=== PATIENT | male | born 1935 | race Caucasian/White ===

== ENCOUNTER 2016-12-23 09:31 | Inpatient (IN) | payer OTHER, MEDICARE ==
[~2016-12-23] VITALS: Ht 177.8 cm; Wt 81.3 kg
[~2016-12-23 09:31] MED LIST: ALDACTONE50 MG PO; ASPIRIN E.C.81 M1 PO; ATENOLOL100 M1 PO; ATENOLOL100 MG PO; FEROSUL325 MG PO; FLEXERIL10 MG PO; FUROSEMIDE40 MG PO; Feosol PO; HYDROCODON-ACE1 EAC7 PO; IMDUR60 MG PO; LASIX10 MG PO; LASIX20 MG PO; LASIX40 MG PO; LIPITOR20 MG PO; LISINOPRIL20 MG PO; LO-DOSE ASPIRIN81 M2 PO; Lasix PO; MIRALAX17 GM PO; NEXIUM40 MG PO; NITROSTAT,NITR0.4 M1 SL; NITROSTAT0.4 MG SL; PANTOPRAZOLE SO40 MG PO; PROCRIT40000 UNI1 SC; PROMETHAZINE HC25 M1 PO; PROTONIX40 MG PO; SPIRIVA1 INHALATI IH; TYLENOL REGULA325 MG PO; Tenormin PO; Tylenol Regular Stre PO; VENTOLIN HFA18 GM IH; ZESTRIL,PRINIVI20 MG PO; ZOFRAN4 MG PO; Zestril,Prinivil PO
[2016-12-23 10:04] LABS: HEMATOCRIT 26.8 % (38.0-50.0); MCH 28.1 PG (29.0-34.0); MCHC 29.9 G/DL (30.0-36.0); MEAN PLAT.VOLUME 11.5 uM^3 (9.0-12.4); PLATELET COUNT 133 K/uL (156-360); RBC DIS.WIDTH-CV 20.6 % (11.8-14.6); RED BLOOD COUNT 2.85 M/uL (4.00-5.50); WHITE BLOOD COUNT 4.5 K/uL (4.1-10.2)
[2016-12-23 10:13] LABS: CHLORIDE 113 mEq/L (99-109); SODIUM 143 mEq/L (136-147)
[2016-12-23 10:15] LABS: GLUCOSE 101 mg/dL (70-99)
[2016-12-23 10:16] LABS: ANION GAP 6 MEQ/L (2-14)
[2016-12-23 10:18] LABS: GFR ESTIMATE (CALCULATED) 41 mL/min/
[2016-12-23 10:19] LABS: UREA NITROGEN (BUN) 65 mg/dL (9-23)
[2016-12-23 10:33] LABS: POTASSIUM 6.3 mEq/L (3.7-5.4)
[2016-12-23 11:55] LABS: TOTAL BILIRUBIN 0.7 mg/dL (0.0-1.0)
[2016-12-23 11:56] LABS: ALKALINE PHOSPHATASE 76 IU/L (3-129)
[2016-12-23 11:59] LABS: DIRECT BILIRUBIN 0.4 mg/dL (0.0-0.3)
[2016-12-23] MEDS ORDERED: PROTONIX40 MG PO (13:04)
[2016-12-23 17:50] VITALS: BP 118/54
[2016-12-23 19:12] LABS: ANION GAP 7 MEQ/L (2-14); CHLORIDE 112 MEQ/L (99-109); POTASSIUM 5.7 MEQ/L (3.7-5.4); SAMPLE HEMOLYSIS CHECK 0; SAMPLE ICTERIC CHECK 0; SAMPLE LIPEMIA CHECK 0; SODIUM 143 MEQ/L (136-147)
[2016-12-23 19:18] LABS: GFR ESTIMATE (CALCULATED) 48 mL/min/; UREA NITROGEN (BUN) 61 mg/dL (9-23)
[2016-12-23 19:19] LABS: GLUCOSE 155 mg/dL (70-99)
[2016-12-23 19:30] VITALS: BP 106/54
[2016-12-23 21:00] VITALS: BP 160/85
[2016-12-23 23:50] VITALS: BP 123/58
[2016-12-24] VITALS (14 sets, daily range): BP systolic 85–112; BP diastolic 44–64
[2016-12-24 06:25] LABS: ANION GAP 5 MEQ/L (2-14); CHLORIDE 113 MEQ/L (99-109); GFR ESTIMATE (CALCULATED) 48 mL/min/; POTASSIUM 5.5 MEQ/L (3.7-5.4); SAMPLE HEMOLYSIS CHECK 0; SAMPLE ICTERIC CHECK 0; SAMPLE LIPEMIA CHECK 0; SODIUM 143 MEQ/L (136-147); UREA NITROGEN (BUN) 59 mg/dL (9-23)
[2016-12-24 06:27] LABS: HEMATOCRIT 23.3 % (38.0-50.0); MCH 28.2 PG (29.0-34.0); MCHC 29.6 G/DL (30.0-36.0); MCV 95.1 FL (86-99); MEAN PLAT.VOLUME 12.5 uM^3 (9.0-12.4); PLATELET COUNT 125 K/uL (156-360); RBC DIS.WIDTH-CV 20.9 % (11.8-14.6); RBC DIS.WIDTH-SD 72.3 % (39-53); RED BLOOD COUNT 2.45 M/uL (4.00-5.50); WHITE BLOOD COUNT 3.8 K/uL (4.1-10.2)
[2016-12-24 06:27] LABS: GLUCOSE 90 mg/dL (70-99)
[2016-12-25 02:02] VITALS: BP 88/58
[2016-12-25 06:56] LABS: HEMATOCRIT 25.2 % (38.0-50.0); MCH 27.8 PG (29.0-34.0); MCHC 30.2 G/DL (30.0-36.0); MCV 92.3 FL (86-99); MEAN PLAT.VOLUME 12.3 uM^3 (9.0-12.4); PLATELET COUNT 120 K/uL (156-360); RBC DIS.WIDTH-CV 20.5 % (11.8-14.6); RBC DIS.WIDTH-SD 67.9 % (39-53); RED BLOOD COUNT 2.73 M/uL (4.00-5.50)
[2016-12-25 07:20] LABS: ANION GAP 6 MEQ/L (2-14); CHLORIDE 114 MEQ/L (99-109); GFR ESTIMATE (CALCULATED) 48 mL/min/; GLUCOSE 79 mg/dL (70-99); POTASSIUM 4.5 MEQ/L (3.7-5.4); SAMPLE HEMOLYSIS CHECK 0; SAMPLE ICTERIC CHECK 0; SAMPLE LIPEMIA CHECK 0; SODIUM 145 MEQ/L (136-147); UREA NITROGEN (BUN) 51 mg/dL (9-23)
[2016-12-25 07:26] LABS: EOSINOPHIL (%) 3.8 % (0-5); EOSINOPHIL COUNT 0.2 K/uL (0-0.3); IMMATURE GRANULOCYTE (%) 0.5 % (0.0-0.7); INSTRUMENT ABS NEUTROPHIL CT 2.6 K/uL; LYMPHOCYTE COUNT 0.7 K/uL (1.0-2.8); MONOCYTE (%) 11.1 % (3-12); MONOCYTE COUNT 0.4 K/uL (0-0.8); NEUTROPHIL (%) 65.6 % (45-76); NEUTROPHIL COUNT 2.6 K/uL (1.8-6.4)
[2016-12-25 10:10] VITALS: BP 100/47
== END 2016-12-25 13:05 | disposition home or self-care (01) | DRG 683 ==
LOC: EME 09:31 → EDOF 12:42 → 5EAST 16:49
PROVIDERS: Family Medicine
PROC: 30233P1 Transfusion of Nonautologous Frozen Red Cells into Peripheral Vein, Percutaneous Approach (ICD-10-PCS; principal; 2016-12-24)
DX: N17.9 Acute kidney failure, unspecified (principal); I13.0 Hypertensive heart and chronic kidney disease with heart failure and stage 1 through stage 4 chronic kidney disease, or unspecified chronic kidney disease; E87.5 Hyperkalemia; D64.9 Anemia, unspecified; I50.9 Heart failure, unspecified; I25.10 Atherosclerotic heart disease of native coronary artery without angina pectoris; N18.9 Chronic kidney disease, unspecified; Z95.0 Presence of cardiac pacemaker; Z87.891 Personal history of nicotine dependence; D46.9 Myelodysplastic syndrome, unspecified; I95.9 Hypotension, unspecified; I48.91 Unspecified atrial fibrillation
CPT/HCPCS: 71020; 80048; 80048 91; 80076; 83880; 85025; 85027; 86850; 86900; 86901; 86920; 93005; 94640; 94640 76; 99202; 99281; 99285; J0610; J0780; J1644; J1940; J7030; J7040; J7050; P9016; S0028

== ENCOUNTER → 2017-03-03 | Outpatient (CLI) | payer OTHER, MEDICARE ==
[~2017-03-03] MED LIST changes: +LASIX80 MG PO; +METOLAZONE2.5 MG PO
[2017-03-03 09:17] LABS: TYPE OF FLUID PARACENTESIS
[2017-03-03 09:59] LABS: BODY FLUID LDH 102 IU/L; BODY FLUID PROTEIN 3.6 G/DL
[2017-03-03 10:34] LABS: BODY FLUID RBC'S 234000 /MM^3 (0-100); BODY FLUID WBC'S 300 /MM^3 (0-500)
[2017-03-03 10:43] LABS: BODY FLUID EOSINOPHILS 2 % (0-25); MONO RAW COUNT 20; MONONUCLEAR WBC'S 20 %; POLY RAW COUNT 78; POLYNUCLEAR WBC'S 78 % (0-25)
[2017-03-06 23:26] LABS: BODY FLUID PH 7.7 (())
== END | disposition home or self-care (01) ==
LOC: RAD 08:08
PROVIDERS: Radiology Diagnostic Radiology
PROC: 0W9G3ZZ Drainage of Peritoneal Cavity, Percutaneous Approach (ICD-10-PCS; principal; 2017-03-03)
DX: R18.8 Other ascites (principal); I50.9 Heart failure, unspecified
CPT/HCPCS: 82945; 83615 91; 83986 90; 84157; 87070; 87075; 87205; 88108; 89051

== ENCOUNTER 2017-03-23 16:43 | Inpatient (IN) | payer OTHER, MEDICARE ==
[~2017-03-23] VITALS: Ht 175.3 cm; Wt 85.0 kg
[2017-03-23 17:59] LABS: MCH 26.5 PG (29.0-34.0); MCV 88.2 FL (86-99); MEAN PLAT.VOLUME 11.5 uM^3 (9.0-12.4); PLATELET COUNT 166 K/uL (156-360); RBC DIS.WIDTH-CV 19.6 % (11.8-14.6); RBC DIS.WIDTH-SD 62.9 % (39-53); RED BLOOD COUNT 2.38 M/uL (4.00-5.50); WHITE BLOOD COUNT 4.7 K/uL (4.1-10.2)
[2017-03-23 18:15] LABS: CHLORIDE 100 mEq/L (99-109); POTASSIUM 3.9 mEq/L (3.7-5.4); SODIUM 141 mEq/L (136-147)
[2017-03-23 18:16] LABS: GLUCOSE 113 mg/dL (70-99)
[2017-03-23 18:18] LABS: ANION GAP 9 MEQ/L (2-14)
[2017-03-23 18:20] LABS: GFR ESTIMATE (CALCULATED) 32 mL/min/
[2017-03-23 18:25] LABS: TROP-I INTERPRETATION NEGATIVE; TROPONIN-I < 0.01 ng/mL (0.0-0.30)
[2017-03-23 18:44] LABS: UREA NITROGEN (BUN) 101 mg/dL (9-23)
[2017-03-23 18:46] LABS: ADD MIUA? YES; BILIRUBIN NEGATIVE; BLOOD SMALL; COLOR STRAW ((YELLOW)); GLUCOSE (STRIP) NEGATIVE; KETONES NEGATIVE; LEUKOCYTES TRACE; NITRITE NEGATIVE; PROTEIN (STRIP) NEGATIVE; SPECIFIC GRAVITY 1.008 (1.000-1.030); UROBILINOGEN 0.2 MG/DL (0.2-1.0)
[2017-03-23 18:52] LABS: BACTERIA NONE SEEN /HPF; EPITHELIAL CELLS RARE /HPF; HYALINE CASTS 0-5 /LPF; MUCUS TRACE /LPF; UCUL ADDED? NO
[2017-03-23 18:52] LABS: ALKALINE PHOSPHATASE 78 IU/L (3-129)
[2017-03-23 18:54] LABS: DIRECT BILIRUBIN 0.4 mg/dL (0.0-0.3)
[2017-03-23] MEDS ORDERED: PROCRIT2000 UNIT1 SC (20:26)
[2017-03-23] MEDS ORDERED: LISINOPRIL20 MG PO (20:27)
[2017-03-23] MEDS ORDERED: LORAZEPAM0.5 MG PO (20:27)
[2017-03-23 23:44] VITALS: BP 106/56
[2017-03-24] VITALS (14 sets, daily range): BP systolic 90–112; BP diastolic 46–56
[2017-03-24 17:31] LABS: ADD MIUA? YES; BILIRUBIN NEGATIVE; BLOOD SMALL; COLOR YELLOW ((YELLOW)); GLUCOSE (STRIP) NEGATIVE; KETONES NEGATIVE; LEUKOCYTES SMALL; NITRITE NEGATIVE; PROTEIN (STRIP) NEGATIVE; SPECIFIC GRAVITY 1.012 (1.000-1.030); UROBILINOGEN 0.2 MG/DL (0.2-1.0)
[2017-03-24 17:49] LABS: BACTERIA RARE /HPF; EPITHELIAL CELLS RARE /HPF; MUCUS TRACE /LPF
[2017-03-24 21:50] LABS: MCH 27.4 PG (29.0-34.0); MCV 88.6 FL (86-99); MEAN PLAT.VOLUME 11.2 uM^3 (9.0-12.4); PLATELET COUNT 119 K/uL (156-360); RBC DIS.WIDTH-SD 56.8 % (39-53); RED BLOOD COUNT 2.37 M/uL (4.00-5.50); WHITE BLOOD COUNT 4.9 K/uL (4.1-10.2)
[2017-03-24 22:08] LABS: ANION GAP 11 MEQ/L (2-14); CHLORIDE 100 MEQ/L (99-109); GFR ESTIMATE (CALCULATED) 38 mL/min/; GLUCOSE 114 mg/dL (70-99); POTASSIUM 3.4 MEQ/L (3.7-5.4); SAMPLE HEMOLYSIS CHECK 0; SAMPLE ICTERIC CHECK 0; SAMPLE LIPEMIA CHECK 0; SODIUM 142 MEQ/L (136-147); UREA NITROGEN (BUN) 94 mg/dL (9-23)
[2017-03-25] VITALS (12 sets, daily range): BP systolic 89–121; BP diastolic 48–73
[2017-03-25 12:36] LABS: EOSINOPHIL (%) 0.4 % (0-5); HEMATOCRIT 26.1 % (38.0-50.0); IMMATURE GRANULOCYTE (%) 0.4 % (0.0-0.7); INSTRUMENT ABS NEUTROPHIL CT 5.6 K/uL; LYMPHOCYTE COUNT 0.5 K/uL (1.0-2.8); MCH 27.4 PG (29.0-34.0); MCV 88.2 FL (86-99); MEAN PLAT.VOLUME 10.6 uM^3 (9.0-12.4); MONOCYTE (%) 14.5 % (3-12); MONOCYTE COUNT 1.1 K/uL (0-0.8); NEUTROPHIL (%) 76.9 % (45-76); NEUTROPHIL COUNT 5.6 K/uL (1.8-6.4); PLATELET COUNT 123 K/uL (156-360); RBC DIS.WIDTH-CV 17.2 % (11.8-14.6); RBC DIS.WIDTH-SD 54.9 % (39-53); WHITE BLOOD COUNT 7.3 K/uL (4.1-10.2)
[2017-03-25 12:38] LABS: RED BLOOD COUNT 2.96 M/uL (4.00-5.50)
[2017-03-25 12:55] LABS: ALKALINE PHOSPHATASE 70 IU/L (3-129); ANION GAP 10 MEQ/L (2-14); CHLORIDE 95 MEQ/L (99-109); GFR ESTIMATE (CALCULATED) 38 mL/min/; GLUCOSE 102 mg/dL (70-99); MAGNESIUM 2.3 mg/dl (1.3-2.7); POTASSIUM 3.2 MEQ/L (3.7-5.4); SAMPLE HEMOLYSIS CHECK 0; SAMPLE ICTERIC CHECK 0; SAMPLE LIPEMIA CHECK 0; SODIUM 136 MEQ/L (136-147); TOTAL BILIRUBIN 2.3 MG/DL (0.0-1.0); UREA NITROGEN (BUN) 95 mg/dL (9-23); URIC ACID 11.6 mg/dL (3.1-9.2)
[2017-03-26] VITALS (7 sets, daily range): BP systolic 82–138; BP diastolic 39–66
[2017-03-26 06:54] LABS: EOSINOPHIL (%) 1.3 % (0-5); EOSINOPHIL COUNT 0.1 K/uL (0-0.3); HEMATOCRIT 23.2 % (38.0-50.0); IMMATURE GRANULOCYTE (%) 0.6 % (0.0-0.7); INSTRUMENT ABS NEUTROPHIL CT 3.9 K/uL; LYMPHOCYTE COUNT 0.5 K/uL (1.0-2.8); MCH 27.7 PG (29.0-34.0); MCHC 31.5 G/DL (30.0-36.0); MCV 87.9 FL (86-99); MEAN PLAT.VOLUME 10.4 uM^3 (9.0-12.4); MONOCYTE (%) 14.7 % (3-12); MONOCYTE COUNT 0.8 K/uL (0-0.8); NEUTROPHIL (%) 73.2 % (45-76); NEUTROPHIL COUNT 3.9 K/uL (1.8-6.4); PLATELET COUNT 93 K/uL (156-360); RBC DIS.WIDTH-CV 17.3 % (11.8-14.6); RBC DIS.WIDTH-SD 54.5 % (39-53); RED BLOOD COUNT 2.64 M/uL (4.00-5.50); WHITE BLOOD COUNT 5.3 K/uL (4.1-10.2)
[2017-03-26 07:24] LABS: IRON 80 MCG/DL (35-150)
[2017-03-27] VITALS (9 sets, daily range): BP systolic 47–111; BP diastolic 39–90
[2017-03-27 06:26] LABS: EOSINOPHIL (%) 1.8 % (0-5); EOSINOPHIL COUNT 0.1 K/uL (0-0.3); HEMATOCRIT 23.6 % (38.0-50.0); IMMATURE GRANULOCYTE (%) 0.2 % (0.0-0.7); INSTRUMENT ABS NEUTROPHIL CT 4.6 K/uL; LYMPHOCYTE COUNT 0.6 K/uL (1.0-2.8); MCH 28.6 PG (29.0-34.0); MCHC 31.8 G/DL (30.0-36.0); MCV 90.1 FL (86-99); MEAN PLAT.VOLUME 11.3 uM^3 (9.0-12.4); MONOCYTE (%) 14.5 % (3-12); MONOCYTE COUNT 0.9 K/uL (0-0.8); NEUTROPHIL (%) 73.5 % (45-76); NEUTROPHIL COUNT 4.6 K/uL (1.8-6.4); PLATELET COUNT 106 K/uL (156-360); RBC DIS.WIDTH-CV 17.8 % (11.8-14.6); RBC DIS.WIDTH-SD 57.6 % (39-53); RED BLOOD COUNT 2.62 M/uL (4.00-5.50); WHITE BLOOD COUNT 6.2 K/uL (4.1-10.2)
[2017-03-27 06:52] LABS: ANION GAP 9 MEQ/L (2-14); CHLORIDE 102 MEQ/L (99-109); GFR ESTIMATE (CALCULATED) 38 mL/min/; GLUCOSE 105 mg/dL (70-99); POTASSIUM 3.1 MEQ/L (3.7-5.4); SAMPLE HEMOLYSIS CHECK 0; SAMPLE ICTERIC CHECK 0; SAMPLE LIPEMIA CHECK 0; UREA NITROGEN (BUN) 91 mg/dL (9-23)
[2017-03-27 06:54] LABS: SODIUM 145 MEQ/L (136-147)
[2017-03-28] VITALS (8 sets, daily range): BP systolic 91–125; BP diastolic 41–55
[2017-03-28 06:40] LABS: ANION GAP 9 MEQ/L (2-14); CHLORIDE 101 MEQ/L (99-109); GFR ESTIMATE (CALCULATED) 38 mL/min/; GLUCOSE 102 mg/dL (70-99); MAGNESIUM 2.4 mg/dl (1.3-2.7); POTASSIUM 3.7 MEQ/L (3.7-5.4); SAMPLE HEMOLYSIS CHECK 0; SAMPLE ICTERIC CHECK 0; SAMPLE LIPEMIA CHECK 0; SODIUM 143 MEQ/L (136-147); UREA NITROGEN (BUN) 91 mg/dL (9-23)
[2017-03-28 06:54] LABS: ALKALINE PHOSPHATASE 63 IU/L (3-129); ANION GAP 9 MEQ/L (2-14); CHLORIDE 103 MEQ/L (99-109); GFR ESTIMATE (CALCULATED) 38 mL/min/; GLUCOSE 98 mg/dL (70-99); POTASSIUM 3.8 MEQ/L (3.7-5.4); SAMPLE HEMOLYSIS CHECK 0; SAMPLE ICTERIC CHECK 0; SAMPLE LIPEMIA CHECK 0; SODIUM 145 MEQ/L (136-147); UREA NITROGEN (BUN) 87 mg/dL (9-23)
[2017-03-28 06:55] LABS: TOTAL BILIRUBIN 2.9 MG/DL (0.0-1.0)
[2017-03-28 15:07] LABS: EOSINOPHIL (%) 2.2 % (0-5); EOSINOPHIL COUNT 0.1 K/uL (0-0.3); HEMATOCRIT 28.1 % (38.0-50.0); IMMATURE GRANULOCYTE (%) 0.2 % (0.0-0.7); INSTRUMENT ABS NEUTROPHIL CT 4.3 K/uL; LYMPHOCYTE COUNT 0.5 K/uL (1.0-2.8); MCH 27.7 PG (29.0-34.0); MCHC 30.2 G/DL (30.0-36.0); MCV 91.5 FL (86-99); MONOCYTE (%) 14.5 % (3-12); MONOCYTE COUNT 0.9 K/uL (0-0.8); NEUTROPHIL (%) 73.9 % (45-76); NEUTROPHIL COUNT 4.3 K/uL (1.8-6.4); PLATELET COUNT 100 K/uL (156-360); RBC DIS.WIDTH-SD 57.8 % (39-53); RED BLOOD COUNT 3.07 M/uL (4.00-5.50); WHITE BLOOD COUNT 5.9 K/uL (4.1-10.2)
[2017-03-28 15:08] LABS: HEMATOCRIT 27.4 % (38.0-50.0); MCHC 30.7 G/DL (30.0-36.0); MCV 91.3 FL (86-99); MEAN PLAT.VOLUME 10.8 uM^3 (9.0-12.4); PLATELET COUNT 98 K/uL (156-360); RBC DIS.WIDTH-CV 17.8 % (11.8-14.6); RBC DIS.WIDTH-SD 58.1 % (39-53); WHITE BLOOD COUNT 5.5 K/uL (4.1-10.2)
[2017-03-29] VITALS (8 sets, daily range): BP systolic 97–123; BP diastolic 53–61
[2017-03-29 05:43] LABS: EOSINOPHIL (%) 3.1 % (0-5); EOSINOPHIL COUNT 0.2 K/uL (0-0.3); HEMATOCRIT 26.2 % (38.0-50.0); IMMATURE GRANULOCYTE (%) 0.3 % (0.0-0.7); INSTRUMENT ABS NEUTROPHIL CT 4.5 K/uL; LYMPHOCYTE COUNT 0.4 K/uL (1.0-2.8); MCH 28.4 PG (29.0-34.0); MCHC 31.3 G/DL (30.0-36.0); MCV 90.7 FL (86-99); MEAN PLAT.VOLUME 11.5 uM^3 (9.0-12.4); MONOCYTE (%) 13.4 % (3-12); MONOCYTE COUNT 0.8 K/uL (0-0.8); NEUTROPHIL (%) 75.7 % (45-76); NEUTROPHIL COUNT 4.5 K/uL (1.8-6.4); PLATELET COUNT 94 K/uL (156-360); RBC DIS.WIDTH-CV 17.9 % (11.8-14.6); RBC DIS.WIDTH-SD 57.4 % (39-53); RED BLOOD COUNT 2.89 M/uL (4.00-5.50); WHITE BLOOD COUNT 5.9 K/uL (4.1-10.2)
[2017-03-29 06:32] LABS: ALKALINE PHOSPHATASE 60 IU/L (3-129); ANION GAP 8 MEQ/L (2-14); CHLORIDE 103 MEQ/L (99-109); GFR ESTIMATE (CALCULATED) 38 mL/min/; GLUCOSE 100 mg/dL (70-99); GLUCOSE 99 mg/dL (70-99); POTASSIUM 4.5 MEQ/L (3.7-5.4); SAMPLE HEMOLYSIS CHECK 0; SAMPLE ICTERIC CHECK 0; SAMPLE LIPEMIA CHECK 0; SODIUM 143 MEQ/L (136-147); UREA NITROGEN (BUN) 90 mg/dL (9-23)
[2017-03-29 06:34] LABS: POTASSIUM 4.6 MEQ/L (3.7-5.4); TOTAL BILIRUBIN 2.1 MG/DL (0.0-1.0)
[2017-03-30 03:03] VITALS: BP 115/58
[2017-03-30 06:14] LABS: BASOPHIL COUNT 0.1 K/uL (0-0.1); EOSINOPHIL (%) 3.2 % (0-5); EOSINOPHIL COUNT 0.2 K/uL (0-0.3); HEMATOCRIT 27.2 % (38.0-50.0); IMMATURE GRANULOCYTE (%) 0.4 % (0.0-0.7); INSTRUMENT ABS NEUTROPHIL CT 5.2 K/uL; LYMPHOCYTE COUNT 0.5 K/uL (1.0-2.8); MCH 27.8 PG (29.0-34.0); MCHC 30.1 G/DL (30.0-36.0); MCV 92.2 FL (86-99); MEAN PLAT.VOLUME 12.2 uM^3 (9.0-12.4); MONOCYTE (%) 12.6 % (3-12); MONOCYTE COUNT 0.9 K/uL (0-0.8); NEUTROPHIL (%) 75.3 % (45-76); NEUTROPHIL COUNT 5.2 K/uL (1.8-6.4); PLATELET COUNT 97 K/uL (156-360); RBC DIS.WIDTH-CV 18.5 % (11.8-14.6); RBC DIS.WIDTH-SD 60.5 % (39-53); RED BLOOD COUNT 2.95 M/uL (4.00-5.50); WHITE BLOOD COUNT 6.9 K/uL (4.1-10.2)
[2017-03-30 06:44] LABS: ANION GAP 13 MEQ/L (2-14); CHLORIDE 103 MEQ/L (99-109); GFR ESTIMATE (CALCULATED) 38 mL/min/; GLUCOSE 98 mg/dL (70-99); POTASSIUM 5.4 MEQ/L (3.7-5.4); SAMPLE HEMOLYSIS CHECK 0; SAMPLE ICTERIC CHECK 0; SAMPLE LIPEMIA CHECK 0; SODIUM 142 MEQ/L (136-147); UREA NITROGEN (BUN) 93 mg/dL (9-23)
[2017-03-30] MEDS ORDERED: ATENOLOL25 MG PO (08:08)
[2017-03-30] MEDS ORDERED: Chronulac,Cephulac,E PO (08:09)
[2017-03-30] MEDS ORDERED: K-DUR20 MEQ PO (08:09)
[2017-03-30] MEDS ORDERED: FAMOTIDINE20 MG PO (08:10)
[2017-03-30] MEDS ORDERED: DOCUSATE SODIU100 MG PO (08:10)
[2017-03-30] MEDS ORDERED: SANTYL30 GM TP (08:11)
[2017-03-30] MEDS ORDERED: DILAUDID4 MG PO (08:12)
[2017-03-30] MEDS ORDERED: DURICEF500 MG/5 M PO (08:13)
[2017-03-30 08:46] VITALS: BP 131/61
[2017-03-30] MEDS ORDERED: hospital bed (10:44)
[2017-03-30 11:45] VITALS: BP 93/50
[2017-03-30 14:42] VITALS: BP 101/51
[2017-03-30 21:45] VITALS: BP 124/56
[2017-03-31 00:31] VITALS: BP 126/57
[2017-03-31 04:19] VITALS: BP 123/53
[2017-03-31 05:39] LABS: EOSINOPHIL (%) 3.3 % (0-5); EOSINOPHIL COUNT 0.2 K/uL (0-0.3); HEMATOCRIT 26.3 % (38.0-50.0); IMMATURE GRANULOCYTE (%) 0.5 % (0.0-0.7); INSTRUMENT ABS NEUTROPHIL CT 4.7 K/uL; LYMPHOCYTE COUNT 0.6 K/uL (1.0-2.8); MCH 28.2 PG (29.0-34.0); MCHC 30.8 G/DL (30.0-36.0); MCV 91.6 FL (86-99); MONOCYTE (%) 13.3 % (3-12); MONOCYTE COUNT 0.8 K/uL (0-0.8); NEUTROPHIL (%) 73.6 % (45-76); NEUTROPHIL COUNT 4.7 K/uL (1.8-6.4); PLATELET COUNT 103 K/uL (156-360); RBC DIS.WIDTH-CV 18.6 % (11.8-14.6); RBC DIS.WIDTH-SD 61.2 % (39-53); RED BLOOD COUNT 2.87 M/uL (4.00-5.50); WHITE BLOOD COUNT 6.3 K/uL (4.1-10.2)
[2017-03-31 06:02] LABS: ANION GAP 7 MEQ/L (2-14); CHLORIDE 104 MEQ/L (99-109); GFR ESTIMATE (CALCULATED) 36 mL/min/; GLUCOSE 100 mg/dL (70-99); POTASSIUM 5.3 MEQ/L (3.7-5.4); SAMPLE HEMOLYSIS CHECK 0; SAMPLE ICTERIC CHECK 0; SAMPLE LIPEMIA CHECK 0; SODIUM 142 MEQ/L (136-147); UREA NITROGEN (BUN) 94 mg/dL (9-23)
[2017-03-31 08:09] VITALS: BP 89/51
[2017-03-31 12:30] VITALS: BP 105/55
[2017-03-31] MEDS ORDERED: MIDODRINE HCL5 MG PO (14:08)
[2017-03-31] MEDS ORDERED: SPIRONOLACTONE25 MG PO (14:09)
[2017-03-31] MEDS ORDERED: FUROSEMIDE40 MG PO (14:09)
== END 2017-03-31 15:41 | disposition home health service (06) | DRG 683 ==
LOC: EME 16:43 → 4EAST 21:13 → EDOF 21:13 → 4EAST 23:29
PROVIDERS: Emergency Medicine; Internal Medicine; Internal Medicine Nephrology
PROC: 30233N1 Transfusion of Nonautologous Red Blood Cells into Peripheral Vein, Percutaneous Approach (ICD-10-PCS; principal; 2017-03-24)
PROC: 0W9G3ZZ Drainage of Peritoneal Cavity, Percutaneous Approach (ICD-10-PCS; 2017-03-28)
DX: N17.9 Acute kidney failure, unspecified (principal); N18.3 Chronic kidney disease, stage 3 (moderate); R18.8 Other ascites; I13.0 Hypertensive heart and chronic kidney disease with heart failure and stage 1 through stage 4 chronic kidney disease, or unspecified chronic kidney disease; I50.9 Heart failure, unspecified; I95.9 Hypotension, unspecified; T50.2X5A Adverse effect of carbonic-anhydrase inhibitors, benzothiadiazides and other diuretics, initial encounter; N39.0 Urinary tract infection, site not specified; D63.1 Anemia in chronic kidney disease; I48.1 Persistent atrial fibrillation; I27.2 Other secondary pulmonary hypertension; J44.9 Chronic obstructive pulmonary disease, unspecified; N28.1 Cyst of kidney, acquired; I25.10 Atherosclerotic heart disease of native coronary artery without angina pectoris; K80.20 Calculus of gallbladder without cholecystitis without obstruction; K74.60 Unspecified cirrhosis of liver; E78.5 Hyperlipidemia, unspecified; E87.6 Hypokalemia; J98.11 Atelectasis; Z51.5 Encounter for palliative care; I08.1 Rheumatic disorders of both mitral and tricuspid valves; W19.XXXA Unspecified fall, initial encounter; Y92.009 Unspecified place in unspecified non-institutional (private) residence as the place of occurrence of the external cause; I25.2 Old myocardial infarction; Z68.29 Body mass index [BMI] 29.0-29.9, adult; Z95.1 Presence of aortocoronary bypass graft; Z87.891 Personal history of nicotine dependence; Z79.899 Other long term (current) drug therapy; Z96.652 Presence of left artificial knee joint; Z95.5 Presence of coronary angioplasty implant and graft; Z79.82 Long term (current) use of aspirin; Z86.19 Personal history of other infectious and parasitic diseases; Z87.442 Personal history of urinary calculi; Z86.79 Personal history of other diseases of the circulatory system
CPT/HCPCS: 49083; 71010; 76770; 80048; 80053; 80069; 80076; 81003; 82140; 82272; 83540; 83735; 83880; 84100; 84466; 84484; 84550; 85025; 85025 91; 85027; 86870; 86900; 86901; 86905; 86920; 87070; 87205; 88108; 93005; 99281; 99285; J0692; J0881; J1940; J2270; J2405; J7050; P9016; P9047

== ENCOUNTER 2017-05-10 23:55 | Emergency (ER) | payer OTHER, MEDICARE ==
[~2017-05-10] VITALS: Ht 175.3 cm; Wt 90.9 kg
[2017-05-11 03:27] LABS: EOSINOPHIL (%) 1.6 % (0-5); EOSINOPHIL COUNT 0.1 K/uL (0-0.3); IMMATURE GRANULOCYTE (%) 0.2 % (0.0-0.7); INSTRUMENT ABS NEUTROPHIL CT 3.1 K/uL; LYMPHOCYTE COUNT 0.5 K/uL (1.0-2.8); MCH 28.2 PG (29.0-34.0); MCHC 30.4 G/DL (30.0-36.0); MCV 92.7 FL (86-99); MEAN PLAT.VOLUME 9.8 uM^3 (9.0-12.4); MONOCYTE (%) 12.9 % (3-12); MONOCYTE COUNT 0.6 K/uL (0-0.8); NEUTROPHIL (%) 72.4 % (45-76); NEUTROPHIL COUNT 3.1 K/uL (1.8-6.4); PLATELET COUNT 119 K/uL (156-360); RBC DIS.WIDTH-CV 17.3 % (11.8-14.6); RBC DIS.WIDTH-SD 59.3 % (39-53); RED BLOOD COUNT 2.59 M/uL (4.00-5.50); WHITE BLOOD COUNT 4.3 K/uL (4.1-10.2)
[2017-05-11 03:37] LABS: CHLORIDE 105 mEq/L (99-109); SODIUM 140 mEq/L (136-147)
[2017-05-11 03:38] LABS: GLUCOSE 104 mg/dL (70-99); INTER. NORMALIZED RATIO 1.2; PROTHROMBIN TIME 13.5 SEC (10.2-12.9)
[2017-05-11 03:40] LABS: ANION GAP 6 MEQ/L (2-14)
[2017-05-11 03:41] LABS: PTT 31.6 SEC (25-37)
[2017-05-11 03:42] LABS: GFR ESTIMATE (CALCULATED) 56 mL/min/
[2017-05-11 03:43] LABS: UREA NITROGEN (BUN) 30 mg/dL (9-23)
[2017-05-11 04:09] VITALS: BP 126/65
== END 2017-05-11 04:14 | disposition home or self-care (01) ==
LOC: EME 23:55
PROVIDERS: Emergency Medicine
PROC: 0HQ7XZZ Repair Abdomen Skin, External Approach (ICD-10-PCS; principal; 2017-05-11)
DX: L76.22 Postprocedural hemorrhage of skin and subcutaneous tissue following other procedure (principal); D64.9 Anemia, unspecified; R18.8 Other ascites; E78.5 Hyperlipidemia, unspecified; I10 Essential (primary) hypertension; K21.9 Gastro-esophageal reflux disease without esophagitis; J44.9 Chronic obstructive pulmonary disease, unspecified; C80.1 Malignant (primary) neoplasm, unspecified; I50.9 Heart failure, unspecified; I25.2 Old myocardial infarction; Z87.891 Personal history of nicotine dependence; Z98.890 Other specified postprocedural states; Z96.659 Presence of unspecified artificial knee joint; Z95.0 Presence of cardiac pacemaker; Z88.5 Allergy status to narcotic agent; Z88.2 Allergy status to sulfonamides; Z88.1 Allergy status to other antibiotic agents; Z88.0 Allergy status to penicillin; Z88.8 Allergy status to other drugs, medicaments and biological substances; Z91.040 Latex allergy status; Z91.048 Other nonmedicinal substance allergy status
CPT/HCPCS: 80048; 85025; 85610; 85730; 99281; 99284

== ENCOUNTER → 2017-05-10 | Outpatient (CLI) | payer OTHER, MEDICARE ==
[~2017-05-10] MED LIST changes: +ATENOLOL25 MG PO; +Chronulac,Cephulac,E PO; +DILAUDID4 MG PO; +DOCUSATE SODIU100 MG PO; +DOK100 M1 PO; +DURICEF500 MG/5 M PO; +FAMOTIDINE20 MG PO; +HYDROMORPHONE HC4 MG PO; +K-DUR20 MEQ PO; +LORAZEPAM0.5 MG PO; +MELATONIN10 M1 PO; +MIDODRINE HCL2.5 MG PO; +MIDODRINE HCL5 MG PO; +PROCRIT2000 UNIT1 SC; +SANTYL30 GM TP; +SPIRONOLACTONE25 MG PO; +ZOFRAN ODT4 MG PO; +hospital bed
== END | disposition home or self-care (01) ==
LOC: RAD 07:45
PROC: 0W9G3ZZ Drainage of Peritoneal Cavity, Percutaneous Approach (ICD-10-PCS; principal; 2017-05-10)
DX: R18.8 Other ascites (principal)
CPT/HCPCS: 49083

== ENCOUNTER → 2017-05-11 | Outpatient (CLI) | payer OTHER, MEDICARE | END | disposition home or self-care (01) | LOC: RAD 09:29 | PROC: 0W9G3ZZ Drainage of Peritoneal Cavity, Percutaneous Approach (ICD-10-PCS; principal; 2017-05-11) | DX: R18.8 Other ascites (principal) | CPT/HCPCS: 49083 ==

== ENCOUNTER 2017-05-28 09:55 | Emergency (ER) | payer OTHER, MEDICARE ==
[~2017-05-28] VITALS: Ht 170.2 cm; Wt 91.8 kg
[2017-05-28 12:17] LABS: HEMATOCRIT 28.7 % (38.0-50.0); MCH 26.9 PG (29.0-34.0); MCHC 29.3 G/DL (30.0-36.0); MEAN PLAT.VOLUME 10.3 uM^3 (9.0-12.4); PLATELET COUNT 139 K/uL (156-360); RBC DIS.WIDTH-CV 18.3 % (11.8-14.6); RBC DIS.WIDTH-SD 61.5 % (39-53); RED BLOOD COUNT 3.12 M/uL (4.00-5.50); WHITE BLOOD COUNT 4.3 K/uL (4.1-10.2)
[2017-05-28 12:23] LABS: INTER. NORMALIZED RATIO 1.2; PROTHROMBIN TIME 13.6 SEC (10.2-12.9)
[2017-05-28 12:25] LABS: PTT 34.4 SEC (25-37)
[2017-05-28 12:30] LABS: CHLORIDE 107 mEq/L (99-109); POTASSIUM 4.8 mEq/L (3.7-5.4); SODIUM 142 mEq/L (136-147)
[2017-05-28 12:32] LABS: GLUCOSE 98 mg/dL (70-99)
[2017-05-28 12:33] LABS: ANION GAP 5 MEQ/L (2-14)
[2017-05-28 12:35] LABS: GFR ESTIMATE (CALCULATED) > 59 mL/min/
[2017-05-28 12:38] LABS: UREA NITROGEN (BUN) 23 mg/dL (9-23)
[2017-05-28 12:41] LABS: TROP-I INTERPRETATION NEGATIVE; TROPONIN-I < 0.01 ng/mL (0.0-0.30)
[2017-05-28 16:55] VITALS: BP 126/9
== END 2017-05-28 16:55 | disposition home or self-care (01) ==
LOC: EME 09:55
PROVIDERS: Emergency Medicine
PROC: 0W9G3ZZ Drainage of Peritoneal Cavity, Percutaneous Approach (ICD-10-PCS; principal; 2017-05-28)
DX: R18.8 Other ascites (principal); I12.9 Hypertensive chronic kidney disease with stage 1 through stage 4 chronic kidney disease, or unspecified chronic kidney disease; N18.9 Chronic kidney disease, unspecified; K72.90 Hepatic failure, unspecified without coma; E78.5 Hyperlipidemia, unspecified; I25.2 Old myocardial infarction; I25.10 Atherosclerotic heart disease of native coronary artery without angina pectoris; K21.9 Gastro-esophageal reflux disease without esophagitis; Z95.5 Presence of coronary angioplasty implant and graft; Z95.1 Presence of aortocoronary bypass graft; Z95.0 Presence of cardiac pacemaker; Z96.659 Presence of unspecified artificial knee joint; Z88.5 Allergy status to narcotic agent; Z88.2 Allergy status to sulfonamides; Z87.891 Personal history of nicotine dependence; Z88.0 Allergy status to penicillin; Z87.442 Personal history of urinary calculi
CPT/HCPCS: 49083; 71020; 80048; 84484; 85027; 85610; 85730; 93005; 99281; 99285

== ENCOUNTER → 2017-06-08 | Outpatient (CLI) | payer OTHER, MEDICARE | END | disposition home or self-care (01) | LOC: RAD 12:52 | PROC: 0W9G3ZZ Drainage of Peritoneal Cavity, Percutaneous Approach (ICD-10-PCS; principal; 2017-06-08) | DX: R18.8 Other ascites (principal) | CPT/HCPCS: 49083 ==

== ENCOUNTER → 2017-06-12 | Outpatient (CLI) | payer OTHER, MEDICARE ==
[~2017-06-12] VITALS: Ht 170.2 cm; Wt 90.7 kg
== END | disposition home or self-care (01) ==
LOC: OPR 12:32 → EDSTATUS 13:00 → OPR 13:00
PROC: 0W9G30Z Drainage of Peritoneal Cavity with Drainage Device, Percutaneous Approach (ICD-10-PCS; principal; 2017-06-12)
DX: R18.8 Other ascites (principal)
CPT/HCPCS: 75989; J2270

== ENCOUNTER → 2017-09-14 | Outpatient (CLI) | payer OTHER, MEDICARE ==
[2017-09-13 19:38] LABS: INTER. NORMALIZED RATIO 1.1
[2017-09-13 19:41] LABS: PTT 31.1 SEC (25-37)
[2017-09-13 20:34] LABS: BASOPHIL (%) 0.6 % (0-1); EOSINOPHIL (%) 2.4 % (0-5); EOSINOPHIL COUNT 0.1 K/uL (0-0.3); HEMATOCRIT 22.8 % (38.0-50.0); HEMOGLOBIN 6.4 G/DL (12.5-16.6); IMMATURE GRANULOCYTE (%) 0.6 % (0.0-0.7); LYMPHOCYTE (%) 11.4 % (15-42); LYMPHOCYTE COUNT 0.5 K/uL (1.0-2.8); MCH 25.4 PG (29.0-34.0); MCHC 28.1 G/DL (30.0-36.0); MCV 90.5 FL (86-99); MONOCYTE (%) 14.6 % (3-12); MONOCYTE COUNT 0.7 K/uL (0-0.8); NEUTROPHIL (%) 70.4 % (45-76); NEUTROPHIL COUNT 3.3 K/uL (1.8-6.4); PLATELET COUNT 174 K/uL (156-360); RBC DIS.WIDTH-SD 60.3 % (39-53); RED BLOOD COUNT 2.52 M/uL (4.00-5.50); WHITE BLOOD COUNT 4.7 K/uL (4.1-10.2)
[~2017-09-14] VITALS: Ht 180.3 cm; Wt 81.0 kg
[2017-09-14] VITALS (11 sets, daily range): BP systolic 11–144; BP diastolic 53–74
[~2017-09-14] MED LIST changes: +ATIVAN0.5 MG PO; +KENALOG,ARISTOC80 G1 TP; +PEPCID20 MG PO; +ZOLOFT25 MG PO
== END | disposition home or self-care (01) ==
LOC: IVINF 14:00
PROVIDERS: Internal Medicine Hematology & Oncology
DX: D64.9 Anemia, unspecified (principal)
CPT/HCPCS: 36415; 36430; 85025; 85610 GA; 85730 GA; 86850; 86870; 86900; 86901; 86920; 86999; 96375; J1940; P9016